=== PATIENT | female | born 1955 | race Two or more races ===

== ENCOUNTER 2024-06-21 04:21 | Day surgery (SDC) | payer OTHER ==
[2024-06-20 10:27] VITALS: BMI 23.4
[2024-06-21] MEDS ORDERED: PROPOFOL 20 ML ONE (10:24)
[2024-06-21] MEDS ORDERED: MIDAZOLAM HCL 2 MG/2 ML SINGLE DOSE VIAL ONE (10:25)
[2024-06-21] MEDS: ceFAZolin SODIUM 1 GM VIAL IVPB ONE (10:50)
[2024-06-21] MEDS: LIDOCAINE 1%/EPI 1:100000 (20 ML MULTI DOSE VIAL) IJ ONE (11:02)
[2024-06-21] MEDS ORDERED: oxyCODONE HCL 5 MG TABLET PO PRN (11:31)
[2024-06-21] MEDS ORDERED: LACTATED RINGERS SOLUTION 1,000 ML IV SCH (11:45)
[2024-06-21] MEDS ORDERED: ACETAMINOPHEN 325 MG TABLET (FP) ONE (12:52)
[2024-06-21] MEDS: ACETAMINOPHEN 325 MG TABLET (FP) PO ONE (14:45)
[2024-06-21 16:32] VITALS: RESP 20; TEMP 97.3
[2024-06-21 16:37] VITALS: BP 107/65; PULSE 72
== END 2024-06-21 12:54 | disposition home or self-care (01) ==
LOC: JASU-SURG 04:21
PROVIDERS: ATTEND Surgery
PROC: 0JB70ZZ Excision of Back Subcutaneous Tissue and Fascia, Open Approach (ICD-10-PCS; principal; 2024-06-21 10:00)
DX: D21.6 Benign neoplasm of connective and other soft tissue of trunk, unspecified (principal)
CPT/HCPCS: 88304-TC; 94760